=== PATIENT | male | born 1965 | race Caucasian/White ===

== ENCOUNTER 2017-04-17 12:35 | Emergency (ER) | payer SELFPAY ==
[~2017-04-17] VITALS: Ht 180.3 cm; Wt 75.4 kg
[2017-04-17] MEDS ORDERED: PREDNISONE20 MG PO (15:22)
[2017-04-17] MEDS ORDERED: INDOCIN50 MG PO (15:22)
[2017-04-17 15:56] VITALS: BP 126/66
== END 2017-04-17 15:57 | disposition home or self-care (01) ==
LOC: EME 12:35
DX: M54.6 Pain in thoracic spine (principal); R09.1 Pleurisy; F17.200 Nicotine dependence, unspecified, uncomplicated
CPT/HCPCS: 71020; 99281; 99284